=== PATIENT | male | born 2000 | race Caucasian/White ===

== ENCOUNTER 2019-07-30 15:55 | Emergency (ER) | payer OTHER ==
[~2019-07-30] VITALS: Wt 130.9 kg
[~2019-07-30 15:55] MED LIST: NAPR-985 PO
[2019-07-30 18:38] VITALS: BP 136/77; PULSE 75; RESP 20
== END 2019-07-30 18:39 | disposition home or self-care (01) ==
LOC: FTE 15:55
DX: S93.402A Sprain of unspecified ligament of left ankle, initial encounter (principal); X50.1XXA Overexertion from prolonged static or awkward postures, initial encounter; Y92.322 Soccer field as the place of occurrence of the external cause
CPT/HCPCS: 73610; 73630; Z7502; Z7610